=== PATIENT | female | born 1970 | race Caucasian/White ===

== ENCOUNTER → 2017-05-19 | Outpatient (CLI) | payer OTHER ==
--- NOTE | 2017-05-20 13:38 | MM ---
Reason for exam: screening (asymptomatic). Last mammogram was performed 4 years ago. History: Patient is postmenopausal. Physical Findings: A clinical breast exam by your physician is recommended on an annual basis and results should be correlated with mammographic findings. MG Screening Mammo w CAD Bilateral CC and MLO view(s) were taken. Prior study comparison: May 26, 2013, CAD bilateral diagnostic mammogram. June 15, 2012, bilateral digital screening mammo w/CAD. The breast tissue is heterogeneously dense. This may lower the sensitivity of mammography. Finding: There are fine, regional calcifications in the upper outer quadrant, middle position of the right breast. New finding since May 26, 2013. ASSESSMENT: Incomplete: need additional imaging evaluation, BI-RAD 0 RECOMMENDATION: Special view mammogram of the right breast. [facility] will attempt to contact patient to return for supplemental views.
== END | disposition home or self-care (01) ==
LOC: RADMAMWWP 13:22
PROVIDERS: ATTEND Family Medicine
DX: Z12.31 Encounter for screening mammogram for malignant neoplasm of breast (principal)
CPT/HCPCS: 77067

== ENCOUNTER → 2017-06-29 | Outpatient (CLI) | payer OTHER ==
--- NOTE | 2017-06-30 07:22 | MM ---
Reason for exam: additional evaluation requested from abnormal screening. Last mammogram was performed 1 month ago. History: Patient is postmenopausal. Physical Findings: Nurse did not find any significant physical abnormalities on exam. MG Work Up Mamm w CAD RT CC with magnification, LM with magnification, and LM view(s) were taken of the right breast. Prior study comparison: May 19, 2017, bilateral MG screening mammo w CAD. May 26, 2013, CAD bilateral diagnostic mammogram. Increasing microcalcifications in the right breast. Biopsy is recommended. These results were verbally communicated with the patient and result sheet given to the patient on 06/29/17. ASSESSMENT: Suspicious, BI-RAD 4 RECOMMENDATION: Stereotactic core biopsy of the right breast. (x 2) Called Dr. Urena's office with mammographic findings and has scheduled an appointment for the patient for 07/05/17 at 1:[address] Wright. PRELIMINARY REPORT CALLED AND FAXED TO DR. WRIGHT ON 06/30/17.
== END | disposition home or self-care (01) ==
LOC: RADMAMWWP 15:03
PROVIDERS: ATTEND Family Medicine
DX: R92.8 Other abnormal and inconclusive findings on diagnostic imaging of breast (principal)
CPT/HCPCS: 77065

== ENCOUNTER → 2017-08-12 | Day surgery (SDC) | payer OTHER ==
[2017-08-12 12:20] VITALS: RESP 16; BMI 23.8
[2017-08-12 15:23] VITALS: BP 121/80; PULSE 72; TEMP 98.1
--- NOTE | 2017-08-12 18:16 | MM ---
EXAMINATION TYPE: MG stereo VAD BX RT DATE OF EXAM: 08/12/2017 COMPARISON: NONE CLINICAL HISTORY: Abnormal mammogram TECHNIQUE: Stereotactic guided core biopsy of right breast. FINDINGS: The procedure of stereotactic guided core biopsy was explained to the patient. Benefits, alternatives, and risks were discussed. An informed consent was then obtained. The shortness pathway for biopsy was chosen. Shortness pathway was craniocaudal approach. Dr. Shelby performed the procedure targeting. The anterior calcifications were targeted. The skin and deeper breast tissue was anesthetized with 1% lidocaine. 5 core samples were obtained. Calcifications are within the sample. The deeper calcifications were localized. A compliance representative dealer region was localized. Skin and deeper breast tissue was anesthetized with 1% lidocaine. 6 core samples were obtained. Calcifications are within the sample. Good hemostasis was obtained with direct pressure. Small hematoma may be at the first biopsy site. This was discussed with the patient. Good hemostasis was obtained second site. Discharge instructions were discussed with the patient. Patient will follow-up with her physician for results. IMPRESSION: 1. Successful core biopsy 2 locations. Recommendations: 1. Recommendations are pending pathology results. Pathology Results: High Risk A. BREAST, RIGHT, SITE A ANTERIOR, STEREOTACTIC NEEDLE CORE BIOPSY: Pending consultation, see addendum/final diagnosis. B. BREAST, RIGHT, SITE B POSTERIOR, STEREOTACTIC NEEDLE CORE BIOPSY: Pending consultation, see addendum/final diagnosis. Recommendation Surgical consult of the right breast. ADH in both samples. Of note, on magnification views of 07/03/17 there are numerous groups of calcifications not sampled. Considering high risk ADH and upgrade at excision, MRI could be performed. SALINAD
--- NOTE | 2017-08-19 10:31 | MM ---
MG Stereo VAD BX Addl RT Radiologist: Peter Shelby D.O. Radiologis EXAMINATION TYPE: MG stereo VAD BX RT DATE OF EXAM: 08/12/2017 COMPARISON: NONE CLINICAL HISTORY: Abnormal mammogram TECHNIQUE: Stereotactic guided core biopsy of right breast. FINDINGS: The procedure of stereotactic guided core biopsy was explained to the patient. Benefits, alternatives, and risks were discussed. An informed consent was then obtained. The shortness pathway for biopsy was chosen. Shortness pathway was craniocaudal approach. Dr. Shelby performed the procedure targeting. The anterior calcifications were targeted. The skin and deeper breast tissue was anesthetized with 1% lidocaine. 5 core samples were obtained. Calcifications are within the sample. The deeper calcifications were localized. A sales representative electric service region was localized. Skin and deeper breast tissue was anesthetized with 1% lidocaine. 6 core samples were obtained. Calcifications are within the sample. Good hemostasis was obtained with direct pressure. Small hematoma may be at the first biopsy site. This was discussed with the patient. Good hemostasis was obtained second site. Discharge instructions were discussed with the patient. Patient will follow-up with her physician for results. IMPRESSION: 1. Successful core biopsy 2 locations. Recommendations: 1. Recommendations are pending pathology results. Pathology Results: High risk A. BREAST, RIGHT, SITE A ANTERIOR, STEREOTACTIC NEEDLE CORE BIOPSY: Pending consultation, see addendum/final diagnosis. B. BREAST, RIGHT, SITE B POSTERIOR, STEREOTACTIC NEEDLE CORE BIOPSY: Pending consultation, see addendum/final diagnosis. RECOMMENDATION: Surgical consultation of the right breast. ADH in both samples. Of note, on magnification views of 07/03/17 there are numerous groups of calcifications not sampled. Considering high risk ADH and upgrade at excision, MRI could be performed. MTDD
== END | disposition home or self-care (01) ==
LOC: RADMAMWWP 08-05 13:05
PROVIDERS: ATTEND Surgery
DX: N60.91 Unspecified benign mammary dysplasia of right breast (principal); R92.0 Mammographic microcalcification found on diagnostic imaging of breast
CPT/HCPCS: 88305; 19081; 19082; A4648; J2001

== ENCOUNTER 2017-11-19 21:21 | Emergency (ER) | payer OTHER ==
[2017-11-19 21:30] VITALS: TEMP 97.7
[2017-11-19] MEDS ORDERED: MORPHINE SULFATE 4 MG/ML SYRINGE IVP STA (22:12)
[2017-11-19] MEDS ORDERED: ONDANSETRON 4 MG/2 ML VIAL IVP STA (22:13)
--- NOTE | 2017-11-19 23:01 | CT ---
EXAMINATION TYPE: CT brain jo ann canchola con DATE OF EXAM: 11/19/2017 COMPARISON: None HISTORY: trauma, fall neck pain. Headache. CT DLP: 1550.3 mGycm Automated exposure control for dose reduction was used. TECHNIQUE: CT scan of the head and cervical spine are performed without contrast. FINDINGS: Ventricles have normal size. There is no mass effect nor midline shift. There is no sign of intracranial hemorrhage. There is some mucosal thickening in the ethmoid air cells. There is mucos al thickening in the right maxillary sinus. The calvarium is intact. The cervical vertebra have normal alignment. There is some narrowing and spurring at C5-6. Posterior elements are intact. Facet joints are intact. Skull base is intact. There is no evidence of cervical spine fracture. IMPRESSION: Negative CT scan of the cervical spine. Negative CT scan of the brain. There is right side ethmoid and maxillary sinusitis. No fracture.
--- NOTE | 2017-11-19 23:06 | XR ---
EXAMINATION TYPE: XR knee limited LT DATE OF EXAM: 11/19/2017 COMPARISON: NONE HISTORY: Knee pain TECHNIQUE: 2 views FINDINGS: I see no fracture nor dislocation. Joint spaces are normal. There is no sign of knee joint effusion. IMPRESSION: Normal left knee.
--- NOTE | 2017-11-19 23:07 | XR ---
EXAMINATION TYPE: XR Hip LT and AP Pelvis DATE OF EXAM: 11/19/2017 COMPARISON: NONE HISTORY: Hip pain TECHNIQUE: 3 views of the pelvis and left hip FINDINGS: Pelvic ring is intact. Proximal left femur and hip joint appear normal. There is no sign of hip dyspl tim. Left hip joint space is fairly normal. Sacroiliac joint appears normal. IMPRESSION: Negative pelvis and left hip exam.
--- NOTE | 2017-11-19 23:08 | XR ---
EXAMINATION TYPE: XR chest 1V DATE OF EXAM: 11/19/2017 COMPARISON: 04/21/2011 HISTORY: Left hip pain. Chest pain TECHNIQUE: Single frontal view of the chest is obtained. FINDINGS: Heart and mediastinum are normal. Lungs are clear. Costophrenic angles are clear. There is no sign of pleural effusion or pneumothorax. IMPRESSION: Normal chest. No change.
--- NOTE | 2017-11-19 23:17 | ED ---
Fall HPI - General Chief Complaint: Fall Stated Complaint: Fall, hip fx Time Seen by Provider: 11/19/17 21:55 Source: patient Mode of arrival: EMS - History of Present Illness Initial Comments: 47-year-old female patient presents to the emergency department today for evaluation after experiencing a fall. Patient states that she was in the grocery store parking lot when she tripped in a manhole and fell striking her knee on the cart. Patient states that she stood up at her knee gave out and she fell once again injuring her neck. Patient is currently complaining of left knee pain and neck pain. Patient states that she did see stars after striking her head but she denies any loss of consciousness. She is complaining of headache currently. Denies any blurred or double vision. She denies any numbness or tingling to her upper or lower extremities. She denies any new back pain. Patient denies any chest pain, shortness of breath, dizziness, weakness, abdominal pain, nausea, or vomiting. - Related Data Home Medications Medication Instructions Recorded Confirmed Aspirin [Adult Low Dose Aspirin EC] 81 mg PO DAILY 08/05/17 11/19/17 Baclofen [Lioresal] 10 mg PO BID 08/05/17 11/19/17 Dextroamphetamine/Amphetamine 30 mg PO BID 08/05/17 11/19/17 [Adderall] Gabapentin [Neurontin] 600 mg PO BID 08/05/17 11/19/17 [place]-3/Dha/Epa/Fish Oil [Fish Oil 300 mg PO TID 08/05/17 11/19/17 500 mg Softgel] Rosuvastatin [Crestor] 10 mg PO DAILY 08/05/17 11/19/17 Tapentadol HCl [Nucynta] 100 mg PO QID 08/05/17 11/19/17 Metoprolol Tartrate [Lopressor] 25 mg PO BID 08/12/17 11/19/17 Milnacipran HCl [Savella] 100 mg PO BID 08/12/17 11/19/17 Multivitamins, Thera [Multivitamin 1 tab PO DAILY 08/12/17 11/19/17 (formulary)] Omeprazole [PriLOSEC] 20 mg PO AC-BID 08/12/17 11/19/17 ALPRAZolam [Xanax] 1 mg PO DAILY PRN 11/19/17 11/19/17 Cholecalciferol [Vitamin D3] 1,000 unit PO DAILY 11/19/17 11/19/17 Allergies Allergy/AdvReac Type Severity Reaction Status Date / Time No Known Allergies Allergy Verified 11/19/17 21:38 Review of Systems ROS Statement: Those systems with pertinent positive or pertinent negative responses have been documented in the HPI. ROS Other: All systems not noted in ROS Statement are negative. Past Medical History Past Medical History: Fibromyalgia, Hyperlipidemia, Hypertension, Rheumatoid Arthritis (RA) Additional Past Medical History / Comment(s): bulging disc 1-5. History of Any Multi-Drug Resistant Organisms: None Reported Past Surgical History: Cholecystectomy, Hernia Repair, Tubal Ligation Additional Past Surgical History / Comment(s): right breast lumpectomy. Past Anesthesia/Blood Transfusion Reactions: No Reported Reaction Past Psychological History: ADD/ADHD, Depression Smoking Status: Current some day smoker Past Alcohol Use History: None Reported Past Drug Use History: None Reported General Exam Limitations: no limitations General appearance: alert, in no apparent distress, other (This is a well- developed, well-nourished adult female patient in no acute distress. Vital signs upon presentation are temperature 97.7F, pulse 96, respirations 20, blood pressure 172/94, pulse ox 98% on room air.) Head exam: Present: atraumatic, normocephalic, normal inspection Eye exam: Present: normal appearance, PERRL, EOMI. Absent: scleral icterus, conjunctival injection, periorbital swelling ENT exam: Present: normal exam, normal oropharynx, mucous membranes moist Neck exam: Present: normal inspection, tenderness (Posterior cervical tenderness ), other. Absent: meningismus, full ROM (C-collar in place), lymphadenopathy Respiratory exam: Present: normal lung sounds bilaterally, chest wall tenderness. Absent: respiratory distress, wheezes, rales, rhonchi, stridor Cardiovascular Exam: Present: regular rate, normal rhythm, normal heart sounds. Absent: systolic murmur, diastolic murmur, rubs, gallop, clicks GI/Abdominal exam: Present: soft, normal bowel sounds. Absent: distended, tenderness, guarding, rebound, rigid Extremities exam: Present: full ROM, normal capillary refill, other (Patient has tenderness over the left hip. Patient is tender over the left anterior knee. There is abrasion to the left anterior knee. Skin to the lower extremities is pink, warm, and dry. Cap refills less than 3 seconds. Pedal and posttibial pulses are 2+ and equal bilaterally.). Absent: normal inspection , tenderness, pedal edema, joint swelling, calf tenderness Back exam: Present: normal inspection. Absent: vertebral tenderness Neurological exam: Present: alert, oriented X3, CN II-XII intact, other ( Strength To the upper extremities is 5/5.) Psychiatric exam: Present: normal affect, normal mood Skin exam: Present: warm, dry, intact, normal color. Absent: rash Course Vital Signs 11/19/17 11/19/17 21:25 23:31 Temperature 97.7 F Pulse Rate 96 82 Respiratory 20 16 Rate Blood Pressure 172/94 148/82 O2 Sat by Pulse 98 96 Oximetry Medical Decision Making - Medical Decision Making 47-year-old female patient presents to the emergency department today for evaluation after expressing a fall. Patient's chief complaints were left knee and neck pain. Physical examination did reveal tenderness over the posterior cervical spine. She had tenderness over the left anterior knee. She also had tenderness over the left hip. Patient also had some chest wall tenderness and complains of some chest tightness. EKG showed normal sinus rhythm with an incomplete right bundle branch block. No evidence of ST elevation or depression. Chest x-ray, orthopedic images, CT brain and C-spine were all negative for any acute findings. Did discuss findings and results with the patient. Patient's c-collar was clear she did have full range of motion to the neck. Patient will be discharged at this time to follow-up with her primary care physician for recheck in 1-2 days. Return parameters discussed in detail. She verbalizes understanding and agrees with this plan. - Radiology Data Radiology results: report reviewed, image reviewed 2 views of the left knee are obtained. This no fracture nor dislocation. Joint spaces are normal. There is no sign of any joint effusion. Impression by Dr. Parsons shows normal left knee. 3 views of the pelvis and left hip are obtained. Pelvic ring is intact. Proximal left femur and hip joint appear normal. There is no sign of hip dysplasia. Left hip joint spaces fairly normal. Sacroiliac joint appears normal. Impression by Dr. Parsons shows negative pelvis and left hip exam. Computed tomography scan of the head and C-spine are performed without contrast. Report was reviewed in its entirety. Impression by Dr. Parsons shows negative computed tomography scan of the cervical spine. Negative computed tomography scan of the brain. There is right-sided ethmoid and maxillary sinusitis. No fracture. One view x-ray of the chest is obtained. Heart mediastinum are normal. Lung bases are clear. Costophrenic angles are clear. There is no sign of pleural effusion or pneumothorax. Normal chest with no change. Disposition Clinical Impression: Strain of left knee, Cervical strain Disposition: HOME SELF-CARE Condition: Good Instructions: Cervical Strain (ED), Contusion in Adults (ED), Fall Prevention ( ED) Additional Instructions: Follow-up with your primary care physician for recheck in 1-2 days. Take, Motrin for pain control. Return here immediately for any new, worsening, or concerning symptoms. Is patient prescribed a controlled substance at d/c from ED?: No Referrals: Stu Urena MD [Primary Care Provider] - 1-2 days Time of Disposition: 23:17
[2017-11-19 23:32] VITALS: BP 148/82; PULSE 82; RESP 16
== END 2017-11-19 23:38 | disposition home or self-care (01) ==
LOC: EC 21:21
DX: S86.812A Strain of other muscle(s) and tendon(s) at lower leg level, left leg, initial encounter (principal); S16.1XXA Strain of muscle, fascia and tendon at neck level, initial encounter; I45.10 Unspecified right bundle-branch block; M79.7 Fibromyalgia; E78.5 Hyperlipidemia, unspecified; I10 Essential (primary) hypertension; M06.9 Rheumatoid arthritis, unspecified; F90.9 Attention-deficit hyperactivity disorder, unspecified type; F32.9 Major depressive disorder, single episode, unspecified; F17.200 Nicotine dependence, unspecified, uncomplicated; Z79.82 Long term (current) use of aspirin; Z79.899 Other long term (current) drug therapy; X50.1XXA Overexertion from prolonged static or awkward postures, initial encounter; Y92.481 Parking lot as the place of occurrence of the external cause
CPT/HCPCS: 93005; 73502; 73560; 71045; 72125; 70450; 99284; 96374; 96375; J2270; J2405

== ENCOUNTER → 2018-09-02 | Outpatient (CLI) | payer OTHER ==
--- NOTE | 2018-09-03 19:36 | MR ---
EXAMINATION TYPE: MR cervical spine wo con DATE OF EXAM: 09/02/2018 COMPARISON: 11/19/[address] HISTORY: Patient has spondylosis with radiculopathy. TECHNIQUE: Multiplanar, multisequence images of the cervical spine were acquired. FINDINGS: There is straightening of usual cervical lordosis that may be on the basis of muscular spra in, spasm or patient positioning. Bone marrow signal is overall within normal limits. There is multil evel disc desiccation seen. Cervical spinal cord signal is overall within normal limits given some pa tient motion artifact. No prevertebral soft tissue swelling. C2-C3: No significant disc disease, spinal canal stenosis or neural foraminal narrowing. C3-C4: Small central disc osteophyte complex is seen without spinal canal stenosis nor neural foramin al narrowing. Minimal facet arthropathy on the left. C4-C5: There is a small central disc herniation, uncovertebral hypertrophy and facet arthropathy crea ting moderate left and mild right neural foraminal narrowing and mild spinal canal stenosis. C5-C6: There is a central disc herniation, uncovertebral hypertrophy and facet arthropathy creating m oderate to severe bilateral neural foraminal narrowing and mild spinal canal stenosis. C6-C7: There is a small central disc herniation and uncovertebral hypertrophy creating mild left neur al foraminal narrowing and mild spinal canal stenosis. Right neuroforamen is patent. C7-T1: No significant disc disease, spinal canal stenosis nor neural foraminal narrowing. IMPRESSION: 1. Small central disc herniation at C4-C5 in combination with degenerative changes create mild spinal canal stenosis, moderate left neural foraminal narrowing and mild right neural foraminal narrowing. 2. Central disc herniation at C5-C6 and comminution with degenerative change create mild spinal canal stenosis and moderate to severe bilateral neural foraminal narrowing. 3. Small central disc herniation at C6-C7 creating mild spinal canal stenosis. Degenerative changes c reate mild left neural foraminal narrowing. 4. Straightening of usual cervical lordosis may relate to muscular sprain, spasm or patient positioni ng.
== END | disposition home or self-care (01) ==
LOC: RADMRIMAIN 19:42
PROVIDERS: ATTEND Family Medicine
DX: M48.02 Spinal stenosis, cervical region (principal); M50.121 Cervical disc disorder at C4-C5 level with radiculopathy; M47.22 Other spondylosis with radiculopathy, cervical region
CPT/HCPCS: 72141